=== PATIENT | male | born 1975 | race Caucasian/White ===

== ENCOUNTER 2017-09-06 10:25 | Emergency (ER) | payer OTHER ==
[2017-09-06] MEDS ORDERED: HYDROCODONE/APAP (5/325) TAB PO (11:30)
[2017-09-06] MEDS: KETOROLAC 30 MG INJ IM (12:12)
== END 2017-09-06 13:01 | disposition home or self-care (01) ==
LOC: FTE 10:25
DX: R59.0 Localized enlarged lymph nodes (principal)
CPT/HCPCS: 76536; 96372; 99285-25